=== PATIENT | male | born 1975 | race Caucasian/White ===

== ENCOUNTER 2021-05-03 05:28 | Emergency (ER) | payer BC, OTHER ==
[~2021-05-03] VITALS: Ht 185.4 cm; Wt 86.4 kg
[~2021-05-03 05:28] MED LIST: NO HOME MEDS
--- NOTE | 2021-05-03 06:35 | NUR ---
Pt c/o L hand/wrist pain.
[2021-05-03] MEDS ORDERED: ibuprofen tablet 400 MG TABLET PO ONE (06:45)
[2021-05-03 07:00] VITALS: BP 109/69
--- NOTE | 2021-05-03 07:25 | NUR ---
Pt given and understands d/c instructions. Ambulatory with a slow steady gait.
== END 2021-05-03 07:25 | disposition home or self-care (01) ==
LOC: ER 05:28
DX: S62.647A Nondisplaced fracture of proximal phalanx of left little finger, initial encounter for closed fracture (principal); M79.642 Pain in left hand; Z72.89 Other problems related to lifestyle; X58.XXXA Exposure to other specified factors, initial encounter; Y93.89 Activity, other specified; Y92.89 Other specified places as the place of occurrence of the external cause; Y99.8 Other external cause status
CPT/HCPCS: 29125; 73130; 99284